=== PATIENT | male | born 1960 | race Caucasian/White ===

== ENCOUNTER 2022-01-03 03:35 | Inpatient (IN) ==
[2022-01-03 04:40] LABS: ABS Basophils 0.1 10^3/ul (0-0.2); ABS Eosinophils 0.1 10^3/ul (0-0.6); ABS Monocytes 0.8 10^3/ul (0-0.8); ABS Neutrophils 10.4 10^3/ul (1.5-7.7); Eosinophil % 0.9 %; Hematocrit 38 % (42-52); Hemoglobin 12.4 g/dL (14.0-18.0); Mean Corpuscular HGB Conc 32 g/dL (31-36); Mean Corpuscular Hemoglobin 30 pg (27-31); Mean Corpuscular Volume 93 fL (80-94); Mean Platelet Volume 9.5 fL (7.4-10.4); Platelet Count 171 10^3/uL (150-450); Red Blood Count 4.13 10^6 /uL (4.18-5.48); Red Cell Distribution Width 16 % (10-15); White Blood Count 12.4 10^3/uL (3.5-10.8)
[2022-01-03 05:08] LABS: High Sens Troponin Baseline 4 pg/mL (<20)
[2022-01-03 05:19] LABS: ALT 12 U/L (7-52); AST 12 U/L (13-39); Albumin/Globulin Ratio 1.3 (1-3); Alcohol, S < 13 mg/dL (<13); Alkaline Phosphatase 126 U/L (35-149); Anion Gap 8 mmol/L (2-11); Blood Urea Nitrogen 20 mg/dL (6-24); C Reactive Protein 5.96 mg/L (<8.01); CO2 Carbon Dioxide 29 mmol/L (22-32); Calcium 9.4 mg/dL (8.6-10.3); Chloride 101 mmol/L (101-111); Globulin 3.1 g/dL (2-4); Glucose 95 mg/dL (70-100); Magnesium 1.9 mg/dL (1.9-2.7); Potassium 4.6 mmol/L (3.5-5.0); Sodium 138 mmol/L (135-145); Total Protein 7.1 g/dL (6.4-8.9); eGFR CKD-EPI 44.3 (>60)
[2022-01-03 05:51] LABS: High Sensitivity Troponin 1 Hr < 3 pg/mL (<20)
[2022-01-03] MEDS ORDERED: Magnesium Hydroxide LIQ 30 ML UDC PO PRN (06:35)
[2022-01-03] MEDS ORDERED: Polyethylene Glycol 3350 17 GM PACKET PO PRN (06:35)
[2022-01-03] MEDS ORDERED: Senna TAB 8.6 mg TAB PO PRN (06:35)
[2022-01-03] MEDS: Morphine 2 MG/ML SYRINGE IV PRN ×3 (08:10→22:20)
[2022-01-03] MEDS ORDERED: Trospium 20 mg TAB (NF) PO SCH (09:00)
[2022-01-03] MEDS: Venlafaxine XR 75 mg PO SCH (10:11)
[2022-01-03] MEDS ORDERED: cefTRIAXone 1 gm/50 mL D5W 1 GM/50 ML BAG IV SCH (11:00)
[2022-01-03] MEDS: Fluticasone NASAL SPRAY 50MCG 16 gm SPRAY BTL BOTH NARES SCH (12:38)
[2022-01-03] MEDS: Acetaminophen IV 1 GM/100ML 100 ML IV SCH ×3 (12:40→18:05)
[2022-01-03] MEDS: Mometasone/Formoter 200/5 MDI INH SCH ×2 (13:27→19:58)
[2022-01-03] MEDS: cefTRIAXone 1 gm/50 mL D5W 1 GM/50 ML BAG IV SCH (15:20)
[2022-01-03] MEDS: TROSPIUM 20 MG PO SCH (22:20)
[2022-01-03 23:29] LABS: Urine Appearance Cloudy; Urine Bilirubin Negative (Negative); Urine Blood 3+ (Negative); Urine Color Straw; Urine Glucose Negative (Negative); Urine Ketones Negative (Negative); Urine Nitrite Negative (Negative); Urine Protein Negative (Negative); Urine Specific Gravity 1.008 (1.002-1.030); Urine Urobilinogen Negative (Negative)
[2022-01-03 23:35] LABS: Urine Bacteria Absent (Absent); Urine Red Blood Cell 3+(>10/hpf) (Absent); Urine White Blood Cell 3+(>20/hpf) (Absent)
[2022-01-03 23:46] LABS: Urine Benzodiazepine Screen None Detected (None Detect); Urine Cannabinoids Screen Presumptive Positive (None Detect); Urine Opiates Screen Presumptive Positive (None Detect)
[2022-01-04] MEDS: Morphine 2 MG/ML SYRINGE IV PRN ×2 (02:30→08:53)
[2022-01-04] MEDS: Albuterol HFA INHALER 8 gm MDI INH PRN ×3 (03:24→23:25)
[2022-01-04] MEDS: Acetaminophen IV 1 GM/100ML 100 ML IV SCH ×3 (03:29→18:16)
[2022-01-04 05:17] LABS: ABS Basophils 0.1 10^3/ul (0-0.2); ABS Eosinophils 0.2 10^3/ul (0-0.6); ABS Lymphocytes 0.7 10^3/ul (1.0-4.8); ABS Monocytes 0.9 10^3/ul (0-0.8); ABS Neutrophils 11.4 10^3/ul (1.5-7.7); Eosinophil % 1.3 %; Hematocrit 35 % (42-52); Hemoglobin 11.2 g/dL (14.0-18.0); Lymphocyte % 5.6 %; Mean Corpuscular HGB Conc 32 g/dL (31-36); Mean Corpuscular Hemoglobin 29 pg (27-31); Mean Corpuscular Volume 93 fL (80-94); Mean Platelet Volume 9.6 fL (7.4-10.4); Platelet Count 126 10^3/uL (150-450); Red Blood Count 3.82 10^6 /uL (4.18-5.48); Red Cell Distribution Width 17 % (10-15); White Blood Count 13.3 10^3/uL (3.5-10.8)
[2022-01-04 05:36] LABS: C Reactive Protein 87.23 mg/L (<8.01); Calcium 9.1 mg/dL (8.6-10.3); Magnesium 1.8 mg/dL (1.9-2.7); eGFR CKD-EPI 53.4 (>60)
[2022-01-04] MEDS: Mometasone/Formoter 200/5 MDI INH SCH ×3 (08:31→19:04)
[2022-01-04] MEDS: SPIRIVA Respimat (tiotropium) 2.5 mcg/inh Inhaler INH PRN (08:31)
[2022-01-04] MEDS ORDERED: Perflutren Lipid Microsphere 3 ML VIAL ONE (10:40)
[2022-01-04] MEDS: TROSPIUM 20 MG PO SCH ×2 (11:04→22:18)
[2022-01-04] MEDS: Venlafaxine XR 75 mg PO SCH (11:04)
[2022-01-04] MEDS ORDERED: Propofol 10 MG/ML 20 ML BTL ONE (12:46)
[2022-01-04] MEDS ORDERED: Rocuronium 50 mg VIAL 10 mg/ml 5 ml VIAL (50 mg) ONE (12:47)
[2022-01-04] MEDS ORDERED: Lidocaine 2% PF 10 ML AMP ONE (12:47)
[2022-01-04] MEDS ORDERED: fentaNYL 250 mcg/5 ml 50 MCG/ML 5 ml VIAL (250 MCG) ONE (12:49)
[2022-01-04] MEDS ORDERED: Midazolam 2 mg/2 ml VIAL 1 mg/ml 2 ml VIAL (2 mg) ONE (12:49)
[2022-01-04] MEDS ORDERED: Bupivacaine 0.25% SDV PF 10 ML VIAL INJ ONE (12:53)
[2022-01-04] MEDS ORDERED: Ketamine HCL 50 mg/ml 10 ml VIAL (500 MG) ONE (14:00)
[2022-01-04] MEDS ORDERED: Acetaminophen IV 1 GM/100ML 100 ML IV ONE (14:21)
[2022-01-04] MEDS ORDERED: Levalbuterol HFA INHALER MDI ONE (14:29)
[2022-01-04] MEDS ORDERED: Metoprolol Tartrate 5 mg VIAL 5 ml VIAL (1 mg/ml) ONE (14:37)
[2022-01-04] MEDS ORDERED: Ondansetron 4 mg VIAL 2 MG/ML 2 ml VIAL ONE (14:40)
[2022-01-04] MEDS ORDERED: Dexamethasone IV 4 MG/ML VIAL 1 ml VIAL ONE (14:40)
[2022-01-04] MEDS ORDERED: HYDROmorphone 0.5 MG/0.5 ML SYRINGE ONE (14:46)
[2022-01-04] MEDS ORDERED: HYDROmorphone 1 MG/1 ML SYRINGE IV PRN (15:08)
[2022-01-04] MEDS ORDERED: fentaNYL 100 mcg/2 ml 50 MCG/ML VIAL IV PRN (15:08)
[2022-01-04] MEDS ORDERED: Ondansetron 4 mg VIAL 2 MG/ML 2 ml VIAL IV PRN (15:08)
[2022-01-04] MEDS ORDERED: Naloxone 0.4 mg VIAL 0.4 mg/ml 1 ml VIAL IV PRN (15:08)
[2022-01-04] MEDS ORDERED: Morphine 2 MG/ML SYRINGE IV PRN (15:44)
[2022-01-04] MEDS ORDERED: Polyethylene Glycol 3350 17 GM PACKET PO PRN (15:45)
[2022-01-04] MEDS ORDERED: Magnesium Hydroxide LIQ 30 ML UDC PO PRN (15:45)
[2022-01-04] MEDS ORDERED: Senna TAB 8.6 mg TAB PO PRN (15:45)
[2022-01-04] MEDS: cefTRIAXone 1 gm/50 mL D5W 1 GM/50 ML BAG IV SCH (17:15)
[2022-01-04] MEDS: Fluticasone NASAL SPRAY 50MCG 16 gm SPRAY BTL BOTH NARES SCH (17:15)
[2022-01-04] MEDS: NS 0.9% 1000 ml BAG 1,000 ML IV SCH (17:31)
[2022-01-04 18:15] LABS: Hematocrit 36 % (42-52); Hemoglobin 11.4 g/dL (14.0-18.0)
[2022-01-04] MEDS ORDERED: Levalbuterol 1.25MG/0.5ML NEB.SOL INH ONE (18:34)
[2022-01-04] MEDS ORDERED: Furosemide 20 mg/2 ml IV VIAL IV SLOW PU ONE (19:54)
[2022-01-04] MEDS: Magnesium Hydroxide LIQ 30 ML UDC PO SCH (20:22)
[2022-01-04] MEDS: ceFAZolin 1 GM X 3 DOSES POST-OP Q8H (AddVan) IVPB SCH (22:18)
[2022-01-05] MEDS: Acetaminophen IV 1 GM/100ML 100 ML IV SCH ×3 (02:33→18:24)
[2022-01-05] MEDS: Albuterol HFA INHALER 8 gm MDI INH PRN ×2 (02:56→08:17)
[2022-01-05 06:37] LABS: Hematocrit 29 % (42-52); Hemoglobin 9.6 g/dL (14.0-18.0); Mean Platelet Volume 9.7 fL (7.4-10.4); Platelet Count 107 10^3/uL (150-450)
[2022-01-05] MEDS: NS 0.9% 1000 ml BAG 1,000 ML IV SCH (06:38)
[2022-01-05] MEDS: ceFAZolin 1 GM X 3 DOSES POST-OP Q8H (AddVan) IVPB SCH ×2 (06:38→14:16)
[2022-01-05] MEDS ORDERED: Furosemide 40 mg/4 ml IV VIAL IV SLOW PU ONE (08:18)
[2022-01-05] MEDS: Mometasone/Formoter 200/5 MDI INH SCH ×2 (08:19→20:44)
[2022-01-05] MEDS: SPIRIVA Respimat (tiotropium) 2.5 mcg/inh Inhaler INH PRN (08:22)
[2022-01-05] MEDS: Venlafaxine XR 75 mg PO SCH (08:35)
[2022-01-05] MEDS: Enoxaparin 40 MG/0.4 ML SYR SUBCUT SCH (08:35)
[2022-01-05] MEDS: Magnesium Hydroxide LIQ 30 ML UDC PO SCH ×2 (08:36→21:39)
[2022-01-05] MEDS: TROSPIUM 20 MG PO SCH ×2 (08:38→22:39)
[2022-01-05] MEDS: Fluticasone NASAL SPRAY 50MCG 16 gm SPRAY BTL BOTH NARES SCH (08:39)
[2022-01-05] MEDS: Levalbuterol HFA INHALER MDI INH PRN ×2 (11:37→23:43)
[2022-01-05] MEDS: cefTRIAXone 1 gm/50 mL D5W 1 GM/50 ML BAG IV SCH (16:59)
[2022-01-05 18:17] LABS: Calcium 8.4 mg/dL (8.6-10.3); Potassium 4.4 mmol/L (3.5-5.0); eGFR CKD-EPI 40.1 (>60)
[2022-01-06] MEDS: Acetaminophen IV 1 GM/100ML 100 ML IV SCH ×3 (02:33→18:39)
[2022-01-06] MEDS ORDERED: Albuterol 2.5mg/3 ml (0.083%) NEB.SOLN INH ONE (05:21)
[2022-01-06] MEDS ORDERED: Acetylcysteine INH SOL (RT) 200 MG/ML 4 ML VIAL INH PRN (05:26)
[2022-01-06] MEDS ORDERED: Furosemide 40 mg/4 ml IV VIAL IV ONE (05:58)
[2022-01-06] MEDS: Mometasone/Formoter 200/5 MDI INH SCH ×2 (07:29→19:53)
[2022-01-06 07:50] LABS: Hematocrit 27 % (42-52); Hemoglobin 8.9 g/dL (14.0-18.0)
[2022-01-06] MEDS: Magnesium Hydroxide LIQ 30 ML UDC PO SCH ×2 (10:05→22:16)
[2022-01-06] MEDS: Venlafaxine XR 75 mg PO SCH (10:07)
[2022-01-06] MEDS: TROSPIUM 20 MG PO SCH ×2 (10:09→22:17)
[2022-01-06] MEDS: Enoxaparin 40 MG/0.4 ML SYR SUBCUT SCH (10:15)
[2022-01-06] MEDS: Levalbuterol HFA INHALER MDI INH PRN ×2 (11:30→22:53)
[2022-01-06] MEDS: Fluticasone NASAL SPRAY 50MCG 16 gm SPRAY BTL BOTH NARES SCH (12:11)
[2022-01-06] MEDS: cefTRIAXone 1 gm/50 mL D5W 1 GM/50 ML BAG IV SCH (15:18)
[2022-01-07] MEDS: Acetaminophen IV 1 GM/100ML 100 ML IV SCH ×2 (01:08→09:59)
[2022-01-07 06:11] LABS: ABS Eosinophils 0.2 10^3/ul (0-0.6); ABS Lymphocytes 0.5 10^3/ul (1.0-4.8); ABS Monocytes 0.4 10^3/ul (0-0.8); ABS Neutrophils 4.5 10^3/ul (1.5-7.7); Eosinophil % 3.2 %; Hematocrit 24 % (42-52); Hemoglobin 7.8 g/dL (14.0-18.0); Lymphocyte % 8.3 %; Mean Corpuscular HGB Conc 33 g/dL (31-36); Mean Corpuscular Hemoglobin 30 pg (27-31); Mean Corpuscular Volume 92 fL (80-94); Mean Platelet Volume 10.3 fL (7.4-10.4); Platelet Count 113 10^3/uL (150-450); Red Blood Count 2.56 10^6 /uL (4.18-5.48); Red Cell Distribution Width 16 % (10-15); White Blood Count 5.6 10^3/uL (3.5-10.8)
[2022-01-07 06:32] LABS: ALT < 3 U/L (7-52); AST 8 U/L (13-39); Albumin 2.7 g/dL (3.2-5.2); Albumin/Globulin Ratio 1.1 (1-3); Alkaline Phosphatase 81 U/L (35-149); Anion Gap 11 mmol/L (2-11); Blood Urea Nitrogen 33 mg/dL (6-24); CO2 Carbon Dioxide 25 mmol/L (22-32); Calcium 8.6 mg/dL (8.6-10.3); Chloride 101 mmol/L (101-111); Globulin 2.4 g/dL (2-4); Glucose 94 mg/dL (70-100); Magnesium 2.3 mg/dL (1.9-2.7); Potassium 4.1 mmol/L (3.5-5.0); Sodium 137 mmol/L (135-145); Total Protein 5.1 g/dL (6.4-8.9); eGFR CKD-EPI 47.9 (>60)
[2022-01-07] MEDS: Levalbuterol HFA INHALER MDI INH PRN (06:56)
[2022-01-07] MEDS: Mometasone/Formoter 200/5 MDI INH SCH ×2 (06:57→19:57)
[2022-01-07] MEDS: TROSPIUM 20 MG PO SCH ×2 (10:03→20:52)
[2022-01-07] MEDS: Enoxaparin 40 MG/0.4 ML SYR SUBCUT SCH (10:04)
[2022-01-07] MEDS: Magnesium Hydroxide LIQ 30 ML UDC PO SCH ×3 (10:04→21:02)
[2022-01-07] MEDS: Fluticasone NASAL SPRAY 50MCG 16 gm SPRAY BTL BOTH NARES SCH (10:04)
[2022-01-07] MEDS: Venlafaxine XR 75 mg PO SCH (10:04)
[2022-01-07] MEDS: cefTRIAXone 1 gm/50 mL D5W 1 GM/50 ML BAG IV SCH (15:47)
[2022-01-08 10:04] LABS: ABS Eosinophils 0.1 10^3/ul (0-0.6); ABS Lymphocytes 0.3 10^3/ul (1.0-4.8); ABS Monocytes 0.5 10^3/ul (0-0.8); ABS Neutrophils 4.2 10^3/ul (1.5-7.7); Eosinophil % 2.6 %; Hematocrit 25 % (42-52); Hemoglobin 8.2 g/dL (14.0-18.0); Lymphocyte % 5.2 %; Mean Corpuscular HGB Conc 34 g/dL (31-36); Mean Corpuscular Hemoglobin 30 pg (27-31); Mean Corpuscular Volume 91 fL (80-94); Mean Platelet Volume 9.2 fL (7.4-10.4); Nucleated Red Blood Cells % 0.2; Platelet Count 151 10^3/uL (150-450); Red Cell Distribution Width 16 % (10-15); White Blood Count 5.1 10^3/uL (3.5-10.8)
[2022-01-08] MEDS: Mometasone/Formoter 200/5 MDI INH SCH ×2 (10:04→19:47)
[2022-01-08] MEDS: Magnesium Hydroxide LIQ 30 ML UDC PO SCH ×2 (10:19→22:21)
[2022-01-08] MEDS: Venlafaxine XR 75 mg PO SCH (10:19)
[2022-01-08] MEDS: TROSPIUM 20 MG PO SCH ×2 (10:21→22:22)
[2022-01-08] MEDS: Enoxaparin 40 MG/0.4 ML SYR SUBCUT SCH (10:41)
[2022-01-08 11:20] LABS: Calcium 8.6 mg/dL (8.6-10.3); Potassium 4.1 mmol/L (3.5-5.0); eGFR CKD-EPI 55.2 (>60)
[2022-01-08] MEDS: Fluticasone NASAL SPRAY 50MCG 16 gm SPRAY BTL BOTH NARES SCH (11:32)
[2022-01-08 17:32] LABS: Urine Appearance Clear; Urine Bilirubin Negative (Negative); Urine Blood 2+ (Negative); Urine Color Yellow; Urine Glucose Negative (Negative); Urine Ketones Trace (Negative); Urine Nitrite Negative (Negative); Urine Protein Negative (Negative); Urine Specific Gravity 1.011 (1.002-1.030); Urine Urobilinogen Negative (Negative)
[2022-01-08 17:35] LABS: Urine Bacteria Absent (Absent); Urine Red Blood Cell 2+(6-10/hpf) (Absent); Urine White Blood Cell Trace(0-5/hpf) (Absent)
[2022-01-08] MEDS: Levalbuterol HFA INHALER MDI INH PRN (21:39)
[2022-01-08] MEDS: SPIRIVA Respimat (tiotropium) 2.5 mcg/inh Inhaler INH PRN (22:39)
[2022-01-09] MEDS: Mometasone/Formoter 200/5 MDI INH SCH ×3 (08:41→21:24)
[2022-01-09] MEDS: Venlafaxine XR 75 mg PO SCH (10:10)
[2022-01-09] MEDS: Enoxaparin 40 MG/0.4 ML SYR SUBCUT SCH (10:10)
[2022-01-09] MEDS: Magnesium Hydroxide LIQ 30 ML UDC PO SCH ×2 (10:11→21:54)
[2022-01-09] MEDS: Fluticasone NASAL SPRAY 50MCG 16 gm SPRAY BTL BOTH NARES SCH (10:11)
[2022-01-09] MEDS: TROSPIUM 20 MG PO SCH ×2 (10:12→21:53)
[2022-01-09] MEDS: Albuterol 2.5mg/3 ml (0.083%) NEB.SOLN INH SCH ×3 (13:03→21:24)
[2022-01-10] MEDS: Albuterol 2.5mg/3 ml (0.083%) NEB.SOLN INH SCH ×5 (01:46→19:50)
[2022-01-10 06:25] LABS: Hematocrit 22 % (42-52); Hemoglobin 7.2 g/dL (14.0-18.0); Mean Corpuscular HGB Conc 33 g/dL (31-36); Mean Corpuscular Hemoglobin 30 pg (27-31); Mean Corpuscular Volume 91 fL (80-94); Mean Platelet Volume 8.9 fL (7.4-10.4); Platelet Count 193 10^3/uL (150-450); Red Blood Count 2.39 10^6 /uL (4.18-5.48); Red Cell Distribution Width 15 % (10-15)
[2022-01-10 06:48] LABS: ABS Eosinophils 0.1 10^3/ul (0-0.6); ABS Lymphocytes 0.4 10^3/ul (1.0-4.8); ABS Monocytes 0.6 10^3/ul (0-0.8); ABS Neutrophils 4.8 10^3/ul (1.5-7.7); Lymphocyte % 7.4 %; Nucleated Red Blood Cells % 0.3
[2022-01-10] MEDS: Mometasone/Formoter 200/5 MDI INH SCH ×2 (07:16→19:50)
[2022-01-10 08:11] LABS: Calcium 8.3 mg/dL (8.6-10.3); Potassium 4.4 mmol/L (3.5-5.0)
[2022-01-10 08:18] LABS: eGFR CKD-EPI 35.8 (>60)
[2022-01-10] MEDS: Venlafaxine XR 75 mg PO SCH (09:50)
[2022-01-10] MEDS: TROSPIUM 20 MG PO SCH ×2 (09:51→20:37)
[2022-01-10] MEDS: Magnesium Hydroxide LIQ 30 ML UDC PO SCH ×2 (09:53→20:36)
[2022-01-10] MEDS: Enoxaparin 40 MG/0.4 ML SYR SUBCUT SCH (09:56)
[2022-01-10] MEDS: Fluticasone NASAL SPRAY 50MCG 16 gm SPRAY BTL BOTH NARES SCH (09:58)
[2022-01-10 14:01] LABS: PCO2 Arterial 36 mmHg (35-45); PO2 Arterial 77 mmHg (80-100)
[2022-01-10 14:53] LABS: Hematocrit 22 % (42-52); Hemoglobin 7.2 g/dL (14.0-18.0)
[2022-01-11] MEDS: Albuterol 2.5mg/3 ml (0.083%) NEB.SOLN INH SCH ×2 (02:23→07:37)
[2022-01-11] MEDS: Mometasone/Formoter 200/5 MDI INH SCH ×2 (07:38→20:38)
[2022-01-11] MEDS: Fluticasone NASAL SPRAY 50MCG 16 gm SPRAY BTL BOTH NARES SCH (09:14)
[2022-01-11] MEDS: Enoxaparin 40 MG/0.4 ML SYR SUBCUT SCH (09:14)
[2022-01-11] MEDS: Magnesium Hydroxide LIQ 30 ML UDC PO SCH ×2 (09:14→22:23)
[2022-01-11] MEDS: TROSPIUM 20 MG PO SCH ×2 (09:15→22:23)
[2022-01-11] MEDS: Venlafaxine XR 75 mg PO SCH (09:15)
[2022-01-11] MEDS ORDERED: Albuterol 2.5mg/3 ml (0.083%) NEB.SOLN INH PRN (11:07)
[2022-01-11] MEDS ORDERED: OLANZAPINE 10 MG IM ONE (13:01)
[2022-01-11 15:59] LABS: Hematocrit 22 % (42-52); Hemoglobin 7.1 g/dL (14.0-18.0); Mean Corpuscular HGB Conc 32 g/dL (31-36); Mean Corpuscular Hemoglobin 29 pg (27-31); Mean Corpuscular Volume 90 fL (80-94); Mean Platelet Volume 8.8 fL (7.4-10.4); Platelet Count 240 10^3/uL (150-450); Red Blood Count 2.46 10^6 /uL (4.18-5.48); Red Cell Distribution Width 16 % (10-15); White Blood Count 7.4 10^3/uL (3.5-10.8)
[2022-01-11 16:47] LABS: Albumin 2.4 g/dL (3.2-5.2); Albumin/Globulin Ratio 0.9 (1-3); Calcium 8.2 mg/dL (8.6-10.3); Globulin 2.6 g/dL (2-4); Phosphorus 4.4 mg/dL (2.5-5.0); Potassium 4.4 mmol/L (3.5-5.0); Total Bilirubin 0.3 mg/dL (0.2-1.0); eGFR CKD-EPI 44.9 (>60)
[2022-01-11 16:57] LABS: ABS Eosinophils 0.1 10^3/ul (0-0.6); ABS Lymphocytes 0.5 10^3/ul (1.0-4.8); ABS Monocytes 0.7 10^3/ul (0-0.8); Eosinophil % 1.8 %; Lymphocyte % 6.7 %; Nucleated Red Blood Cells % 0.3
[2022-01-11] MEDS ORDERED: Piperacillin/Tazobac ADVAN 3.375 GM in NS 0.9% 100 ml BAG 100 ML IV ONE (18:15)
[2022-01-11] MEDS ORDERED: Zosyn per Pharmacy NOTE FOLLOW UP SCH (19:00)
[2022-01-12] MEDS: ZOSYN 3.375 GM Q8H per EXTENDED INFUSION IV SCH ×4 (00:03→23:48)
[2022-01-12 06:01] LABS: Hematocrit 23 % (42-52); Hemoglobin 7.4 g/dL (14.0-18.0); Mean Corpuscular HGB Conc 33 g/dL (31-36); Mean Corpuscular Hemoglobin 29 pg (27-31); Mean Corpuscular Volume 90 fL (80-94); Mean Platelet Volume 8.6 fL (7.4-10.4); Platelet Count 274 10^3/uL (150-450); Red Blood Count 2.53 10^6 /uL (4.18-5.48); Red Cell Distribution Width 16 % (10-15); White Blood Count 10.7 10^3/uL (3.5-10.8)
[2022-01-12 06:09] LABS: ABS Eosinophils 0.2 10^3/ul (0-0.6); ABS Lymphocytes 0.8 10^3/ul (1.0-4.8); ABS Monocytes 1.1 10^3/ul (0-0.8); ABS Neutrophils 8.6 10^3/ul (1.5-7.7); Eosinophil % 1.7 %; Lymphocyte % 7.1 %; Nucleated Red Blood Cells % 0.2
[2022-01-12 06:22] LABS: C Reactive Protein 330.07 mg/L (<8.01); Calcium 8.2 mg/dL (8.6-10.3); Phosphorus 4.2 mg/dL (2.5-5.0); Potassium 4.3 mmol/L (3.5-5.0); eGFR CKD-EPI 40.1 (>60)
[2022-01-12] MEDS: TROSPIUM 20 MG PO SCH ×2 (07:46→21:58)
[2022-01-12] MEDS: Venlafaxine XR 75 mg PO SCH (07:47)
[2022-01-12] MEDS: Enoxaparin 40 MG/0.4 ML SYR SUBCUT SCH (07:48)
[2022-01-12] MEDS: Magnesium Hydroxide LIQ 30 ML UDC PO SCH ×3 (07:49→21:58)
[2022-01-12] MEDS: Mometasone/Formoter 200/5 MDI INH SCH ×2 (08:39→21:04)
[2022-01-12] MEDS: Fluticasone NASAL SPRAY 50MCG 16 gm SPRAY BTL BOTH NARES SCH (09:05)
[2022-01-12] MEDS ORDERED: OLANZapine IM (NF) 10 MG VIAL IM ONE (09:25)
[2022-01-12] MEDS ORDERED: Furosemide 40 mg/4 ml IV VIAL IV SLOW PU ONE (12:06)
[2022-01-12] MEDS: OLANZapine 5 mg TAB *ODT PO SCH (22:03)
[2022-01-13] MEDS: ZOSYN 3.375 GM Q8H per EXTENDED INFUSION IV SCH ×2 (07:57→16:30)
[2022-01-13] MEDS: Fluticasone NASAL SPRAY 50MCG 16 gm SPRAY BTL BOTH NARES SCH (08:01)
[2022-01-13] MEDS: Venlafaxine XR 75 mg PO SCH (08:02)
[2022-01-13] MEDS: OLANZapine 5 mg TAB *ODT PO SCH ×2 (08:06→20:26)
[2022-01-13] MEDS: Magnesium Hydroxide LIQ 30 ML UDC PO SCH ×2 (08:08→20:13)
[2022-01-13] MEDS: Enoxaparin 40 MG/0.4 ML SYR SUBCUT SCH (08:11)
[2022-01-13] MEDS: TROSPIUM 20 MG PO SCH ×2 (08:16→20:26)
[2022-01-13] MEDS: Mometasone/Formoter 200/5 MDI INH SCH ×2 (09:55→19:16)
[2022-01-13 11:13] LABS: Hematocrit 23 % (42-52); Hemoglobin 7.3 g/dL (14.0-18.0); Mean Corpuscular HGB Conc 32 g/dL (31-36); Mean Corpuscular Hemoglobin 29 pg (27-31); Mean Corpuscular Volume 90 fL (80-94); Mean Platelet Volume 8.2 fL (7.4-10.4); Platelet Count 292 10^3/uL (150-450); Red Blood Count 2.55 10^6 /uL (4.18-5.48); Red Cell Distribution Width 16 % (10-15)
[2022-01-13 11:51] LABS: Calcium 7.9 mg/dL (8.6-10.3); Magnesium 2.6 mg/dL (1.9-2.7); Potassium 4.4 mmol/L (3.5-5.0); eGFR CKD-EPI 38.7 (>60)
[2022-01-13 12:13] LABS: ABS Eosinophils 0.2 10^3/ul (0-0.6); ABS Monocytes 1.6 10^3/ul (0-0.8); ABS Neutrophils 10.2 10^3/ul (1.5-7.7); Eosinophil % 1.5 %; Lymphocyte % 7.7 %; Nucleated Red Blood Cells % 0.3
[2022-01-13 12:16] LABS: Anisocytosis 1+
[2022-01-13] MEDS: Levalbuterol HFA INHALER MDI INH PRN (13:25)
[2022-01-14] MEDS: ZOSYN 3.375 GM Q8H per EXTENDED INFUSION IV SCH ×4 (02:08→23:37)
[2022-01-14 06:12] LABS: Hematocrit 24 % (42-52); Hemoglobin 7.7 g/dL (14.0-18.0); Mean Corpuscular HGB Conc 32 g/dL (31-36); Mean Corpuscular Hemoglobin 30 pg (27-31); Mean Corpuscular Volume 93 fL (80-94); Mean Platelet Volume 8.2 fL (7.4-10.4); Platelet Count 318 10^3/uL (150-450); Red Cell Distribution Width 17 % (10-15); White Blood Count 13.4 10^3/uL (3.5-10.8)
[2022-01-14 06:36] LABS: Calcium 8.2 mg/dL (8.6-10.3); Magnesium 2.5 mg/dL (1.9-2.7); Potassium 4.8 mmol/L (3.5-5.0); eGFR CKD-EPI 40.7 (>60)
[2022-01-14] MEDS: SPIRIVA Respimat (tiotropium) 2.5 mcg/inh Inhaler INH PRN (07:48)
[2022-01-14] MEDS: Mometasone/Formoter 200/5 MDI INH SCH ×3 (07:48→20:44)
[2022-01-14] MEDS: Levalbuterol HFA INHALER MDI INH PRN (07:48)
[2022-01-14 08:34] LABS: ABS Basophils 0.1 10^3/ul (0-0.2); ABS Eosinophils 0.2 10^3/ul (0-0.6); ABS Lymphocytes 0.9 10^3/ul (1.0-4.8); ABS Monocytes 1.3 10^3/ul (0-0.8); ABS Neutrophils 10.9 10^3/ul (1.5-7.7); Eosinophil % 1.8 %; Nucleated Red Blood Cells % 0.2; RBC Morphology Normal (Normal)
[2022-01-14] MEDS: guaiFENesin 100 mg/5 ml LIQ unit dose cup PO SCH ×2 (09:13→20:27)
[2022-01-14] MEDS: Fluticasone NASAL SPRAY 50MCG 16 gm SPRAY BTL BOTH NARES SCH (09:13)
[2022-01-14] MEDS: Enoxaparin 40 MG/0.4 ML SYR SUBCUT SCH (09:13)
[2022-01-14] MEDS: Magnesium Hydroxide LIQ 30 ML UDC PO SCH ×2 (09:15→20:27)
[2022-01-14] MEDS: TROSPIUM 20 MG PO SCH ×2 (09:15→20:28)
[2022-01-14] MEDS: OLANZapine 5 mg TAB *ODT PO SCH ×2 (09:15→20:27)
[2022-01-14] MEDS: Venlafaxine XR 75 mg PO SCH (09:15)
[2022-01-14] MEDS ORDERED: NS 0.9% 500 ml BAG 500 ML IV ONE (23:48)
[2022-01-15] MEDS: Levalbuterol HFA INHALER MDI INH PRN ×2 (03:18→13:51)
[2022-01-15 05:09] LABS: Hematocrit 25 % (42-52); Hemoglobin 7.6 g/dL (14.0-18.0); Mean Corpuscular HGB Conc 31 g/dL (31-36); Mean Corpuscular Hemoglobin 28 pg (27-31); Mean Corpuscular Volume 91 fL (80-94); Mean Platelet Volume 8.2 fL (7.4-10.4); Platelet Count 358 10^3/uL (150-450); Red Blood Count 2.73 10^6 /uL (4.18-5.48); Red Cell Distribution Width 17 % (10-15); White Blood Count 13.8 10^3/uL (3.5-10.8)
[2022-01-15 05:23] LABS: ABS Basophils 0.1 10^3/ul (0-0.2); ABS Eosinophils 0.4 10^3/ul (0-0.6); ABS Lymphocytes 1.1 10^3/ul (1.0-4.8); ABS Monocytes 1.5 10^3/ul (0-0.8); ABS Neutrophils 10.8 10^3/ul (1.5-7.7); Eosinophil % 2.7 %; Nucleated Red Blood Cells % 0.2
[2022-01-15 05:52] LABS: Calcium 8.1 mg/dL (8.6-10.3); Magnesium 2.4 mg/dL (1.9-2.7); Potassium 4.5 mmol/L (3.5-5.0); eGFR CKD-EPI 40.1 (>60)
[2022-01-15] MEDS: TROSPIUM 20 MG PO SCH (08:22)
[2022-01-15] MEDS: guaiFENesin 100 mg/5 ml LIQ unit dose cup PO SCH ×2 (08:22→20:22)
[2022-01-15] MEDS: Enoxaparin 40 MG/0.4 ML SYR SUBCUT SCH (08:22)
[2022-01-15] MEDS: ZOSYN 3.375 GM Q8H per EXTENDED INFUSION IV SCH ×3 (08:24→23:36)
[2022-01-15] MEDS: Venlafaxine XR 75 mg PO SCH (08:24)
[2022-01-15] MEDS: OLANZapine 5 mg TAB *ODT PO SCH ×2 (08:24→23:40)
[2022-01-15] MEDS: Fluticasone NASAL SPRAY 50MCG 16 gm SPRAY BTL BOTH NARES SCH (08:43)
[2022-01-15] MEDS: Magnesium Hydroxide LIQ 30 ML UDC PO SCH ×2 (08:43→23:34)
[2022-01-15] MEDS: Mometasone/Formoter 200/5 MDI INH SCH ×2 (12:35→19:39)
[2022-01-15] MEDS: SPIRIVA Respimat (tiotropium) 2.5 mcg/inh Inhaler INH SCH (12:36)
[2022-01-15 13:30] LABS: C Reactive Protein 145.62 mg/L (<8.01)
[2022-01-15] MEDS ORDERED: Simethicone SUSP ORALSYR 66.66 MG/ML PO ONE (14:00)
[2022-01-15] MEDS ORDERED: Morphine 2 MG/ML SYRINGE IV PRN (14:13)
[2022-01-15] MEDS: Albuterol 2.5mg/3 ml (0.083%) NEB.SOLN INH PRN (18:46)
[2022-01-16] MEDS: Levalbuterol HFA INHALER MDI INH PRN ×2 (04:30→14:31)
[2022-01-16 06:41] LABS: Hematocrit 23 % (42-52); Hemoglobin 7.4 g/dL (14.0-18.0); Mean Corpuscular HGB Conc 32 g/dL (31-36); Mean Corpuscular Hemoglobin 29 pg (27-31); Mean Corpuscular Volume 92 fL (80-94); Platelet Count 408 10^3/uL (150-450); Red Blood Count 2.53 10^6 /uL (4.18-5.48); Red Cell Distribution Width 16 % (10-15); White Blood Count 16.7 10^3/uL (3.5-10.8)
[2022-01-16] MEDS: SPIRIVA Respimat (tiotropium) 2.5 mcg/inh Inhaler INH SCH ×2 (08:08→09:05)
[2022-01-16] MEDS: Mometasone/Formoter 200/5 MDI INH SCH ×3 (08:08→19:47)
[2022-01-16] MEDS: guaiFENesin 100 mg/5 ml LIQ unit dose cup PO SCH ×2 (09:00→20:15)
[2022-01-16] MEDS: Venlafaxine XR 75 mg PO SCH (09:01)
[2022-01-16] MEDS: Fluticasone NASAL SPRAY 50MCG 16 gm SPRAY BTL BOTH NARES SCH (09:04)
[2022-01-16] MEDS: ZOSYN 3.375 GM Q8H per EXTENDED INFUSION IV SCH ×2 (09:11→16:12)
[2022-01-16] MEDS: Enoxaparin 40 MG/0.4 ML SYR SUBCUT SCH (09:23)
[2022-01-16] MEDS: OLANZapine 5 mg TAB *ODT PO SCH ×2 (09:24→20:25)
[2022-01-16] MEDS ORDERED: Dextran 70/Hypromellose Tears Eye Drops 15 ml BTL (for Artificials Tears) BOTH EYES PRN (23:36)
[2022-01-17] MEDS ORDERED: NS 0.9% 100 ml BAG 100 ML ONE (00:21)
[2022-01-17] MEDS: ZOSYN 3.375 GM Q8H per EXTENDED INFUSION IV SCH ×4 (00:23→23:32)
[2022-01-17] MEDS: Levalbuterol HFA INHALER MDI INH PRN ×2 (03:32→08:03)
[2022-01-17 05:56] LABS: Hematocrit 23 % (42-52); Hemoglobin 7.2 g/dL (14.0-18.0); Mean Corpuscular HGB Conc 31 g/dL (31-36); Mean Corpuscular Hemoglobin 28 pg (27-31); Mean Corpuscular Volume 92 fL (80-94); Mean Platelet Volume 8.1 fL (7.4-10.4); Platelet Count 478 10^3/uL (150-450); Red Blood Count 2.53 10^6 /uL (4.18-5.48); Red Cell Distribution Width 17 % (10-15); White Blood Count 21.6 10^3/uL (3.5-10.8)
[2022-01-17 06:17] LABS: Calcium 8.2 mg/dL (8.6-10.3); Potassium 4.2 mmol/L (3.5-5.0); eGFR CKD-EPI 37.7 (>60)
[2022-01-17 07:00] LABS: ABS Lymphocytes 1.4 10^3/ul (1.0-4.8); ABS Monocytes 1.3 10^3/ul (0-0.8); ABS Neutrophils 18.8 10^3/ul (1.5-7.7); Eosinophil % 0.2 %; Lymphocyte % 6.5 %; Nucleated Red Blood Cells % 0.2
[2022-01-17 07:07] LABS: RBC Morphology Normal (Normal)
[2022-01-17] MEDS: Mometasone/Formoter 200/5 MDI INH SCH ×2 (08:04→20:37)
[2022-01-17] MEDS: SPIRIVA Respimat (tiotropium) 2.5 mcg/inh Inhaler INH SCH (08:04)
[2022-01-17] MEDS: guaiFENesin 100 mg/5 ml LIQ unit dose cup PO SCH ×2 (08:36→20:31)
[2022-01-17] MEDS: Enoxaparin 40 MG/0.4 ML SYR SUBCUT SCH (08:37)
[2022-01-17] MEDS: Venlafaxine XR 75 mg PO SCH (08:38)
[2022-01-17] MEDS: Fluticasone NASAL SPRAY 50MCG 16 gm SPRAY BTL BOTH NARES SCH (08:52)
[2022-01-17] MEDS: OLANZapine 5 mg TAB *ODT PO SCH ×2 (08:52→20:27)
[2022-01-18] MEDS: Levalbuterol HFA INHALER MDI INH PRN ×3 (02:10→19:39)
[2022-01-18] MEDS: Mometasone/Formoter 200/5 MDI INH SCH ×2 (07:04→19:39)
[2022-01-18] MEDS: SPIRIVA Respimat (tiotropium) 2.5 mcg/inh Inhaler INH SCH (07:04)
[2022-01-18] MEDS: ZOSYN 3.375 GM Q8H per EXTENDED INFUSION IV SCH ×2 (08:36→15:05)
[2022-01-18] MEDS: Venlafaxine XR 75 mg PO SCH (09:18)
[2022-01-18] MEDS: guaiFENesin 100 mg/5 ml LIQ unit dose cup PO SCH ×2 (09:20→20:12)
[2022-01-18] MEDS: Fluticasone NASAL SPRAY 50MCG 16 gm SPRAY BTL BOTH NARES SCH (09:21)
[2022-01-18] MEDS: Enoxaparin 40 MG/0.4 ML SYR SUBCUT SCH (09:21)
[2022-01-18] MEDS: OLANZapine 5 mg TAB *ODT PO SCH ×2 (09:22→20:11)
[2022-01-18 10:25] LABS: Hematocrit 25 % (42-52); Hemoglobin 7.8 g/dL (14.0-18.0); Mean Corpuscular HGB Conc 31 g/dL (31-36); Mean Corpuscular Hemoglobin 29 pg (27-31); Mean Corpuscular Volume 94 fL (80-94); Mean Platelet Volume 7.8 fL (7.4-10.4); Platelet Count 493 10^3/uL (150-450); Red Blood Count 2.66 10^6 /uL (4.18-5.48); Red Cell Distribution Width 17 % (10-15); White Blood Count 19.7 10^3/uL (3.5-10.8)
[2022-01-18 10:29] LABS: Potassium 3.5 mmol/L (3.5-5.0); eGFR CKD-EPI 36.6 (>60)
[2022-01-18 11:17] LABS: ABS Eosinophils 0.1 10^3/ul (0-0.6); ABS Lymphocytes 1.7 10^3/ul (1.0-4.8); ABS Monocytes 1.2 10^3/ul (0-0.8); ABS Neutrophils 16.6 10^3/ul (1.5-7.7); Eosinophil % 0.5 %; Lymphocyte % 8.8 %; Nucleated Red Blood Cells % 0.1
[2022-01-18] MEDS ORDERED: Lidocaine 4% GEL 10 GM TUBE TOPICAL ONE (21:39)
[2022-01-18] MEDS ORDERED: Ondansetron 4 mg VIAL 2 MG/ML 2 ml VIAL IV PRN (21:40)
[2022-01-19] MEDS: Levalbuterol HFA INHALER MDI INH PRN ×2 (01:37→20:32)
[2022-01-19] MEDS: ZOSYN 3.375 GM Q8H per EXTENDED INFUSION IV SCH ×3 (01:37→15:31)
[2022-01-19] MEDS: SPIRIVA Respimat (tiotropium) 2.5 mcg/inh Inhaler INH SCH (08:05)
[2022-01-19] MEDS: Mometasone/Formoter 200/5 MDI INH SCH ×2 (08:41→20:47)
[2022-01-19] MEDS: Fluticasone NASAL SPRAY 50MCG 16 gm SPRAY BTL BOTH NARES SCH (09:29)
[2022-01-19] MEDS: guaiFENesin 100 mg/5 ml LIQ unit dose cup PO SCH ×2 (09:29→20:26)
[2022-01-19] MEDS: Enoxaparin 40 MG/0.4 ML SYR SUBCUT SCH (09:29)
[2022-01-19] MEDS: Venlafaxine XR 75 mg PO SCH (09:30)
[2022-01-19] MEDS: OLANZapine 5 mg TAB *ODT PO SCH (09:31)
[2022-01-20] MEDS: ZOSYN 3.375 GM Q8H per EXTENDED INFUSION IV SCH ×2 (01:14→08:43)
[2022-01-20] MEDS: guaiFENesin 100 mg/5 ml LIQ unit dose cup PO SCH ×2 (08:39→20:21)
[2022-01-20] MEDS: Fluticasone NASAL SPRAY 50MCG 16 gm SPRAY BTL BOTH NARES SCH (08:40)
[2022-01-20] MEDS: Venlafaxine XR 75 mg PO SCH (08:41)
[2022-01-20] MEDS: Enoxaparin 40 MG/0.4 ML SYR SUBCUT SCH (08:43)
[2022-01-20] MEDS: SPIRIVA Respimat (tiotropium) 2.5 mcg/inh Inhaler INH SCH (12:08)
[2022-01-20] MEDS: Mometasone/Formoter 200/5 MDI INH SCH ×2 (12:09→20:39)
[2022-01-20] MEDS: Amoxicillin/Clavul 875/125 TAB (Augmentin 875 tab) PO SCH (20:22)
[2022-01-21] MEDS: Levalbuterol HFA INHALER MDI INH PRN ×2 (00:39→08:42)
[2022-01-21] MEDS: SPIRIVA Respimat (tiotropium) 2.5 mcg/inh Inhaler INH SCH (08:40)
[2022-01-21] MEDS: Mometasone/Formoter 200/5 MDI INH SCH ×2 (08:41→20:27)
[2022-01-21] MEDS: guaiFENesin 100 mg/5 ml LIQ unit dose cup PO SCH ×2 (09:16→21:09)
[2022-01-21] MEDS: Enoxaparin 40 MG/0.4 ML SYR SUBCUT SCH (09:16)
[2022-01-21] MEDS: Venlafaxine XR 75 mg PO SCH (09:17)
[2022-01-21] MEDS: Amoxicillin/Clavul 875/125 TAB (Augmentin 875 tab) PO SCH ×2 (09:20→21:09)
[2022-01-21] MEDS: Fluticasone NASAL SPRAY 50MCG 16 gm SPRAY BTL BOTH NARES SCH (09:22)
[2022-01-21] MEDS: Albuterol 2.5mg/3 ml (0.083%) NEB.SOLN INH PRN (22:28)
[2022-01-22] MEDS: Levalbuterol HFA INHALER MDI INH PRN ×2 (05:46→08:56)
[2022-01-22 05:50] LABS: Hematocrit 22 % (42-52); Hemoglobin 6.8 g/dL (14.0-18.0); Mean Corpuscular HGB Conc 31 g/dL (31-36); Mean Corpuscular Hemoglobin 29 pg (27-31); Mean Corpuscular Volume 92 fL (80-94); Mean Platelet Volume 7.9 fL (7.4-10.4); Platelet Count 531 10^3/uL (150-450); Red Blood Count 2.39 10^6 /uL (4.18-5.48); Red Cell Distribution Width 17 % (10-15); White Blood Count 11.2 10^3/uL (3.5-10.8)
[2022-01-22 06:15] LABS: Anion Gap 8 mmol/L (2-11); Blood Urea Nitrogen 29 mg/dL (6-24); CO2 Carbon Dioxide 24 mmol/L (22-32); Calcium 8.3 mg/dL (8.6-10.3); Chloride 111 mmol/L (101-111); Glucose 117 mg/dL (70-100); Magnesium 1.4 mg/dL (1.9-2.7); Potassium 4.8 mmol/L (3.5-5.0); Sodium 143 mmol/L (135-145); eGFR CKD-EPI 49.8 (>60)
[2022-01-22 07:18] LABS: ABS Eosinophils 0.1 10^3/ul (0-0.6); ABS Lymphocytes 1.6 10^3/ul (1.0-4.8); ABS Monocytes 0.9 10^3/ul (0-0.8); ABS Neutrophils 8.6 10^3/ul (1.5-7.7); Eosinophil % 0.7 %; Lymphocyte % 14.2 %; Nucleated Red Blood Cells % 0.1
[2022-01-22] MEDS: SPIRIVA Respimat (tiotropium) 2.5 mcg/inh Inhaler INH SCH (08:56)
[2022-01-22] MEDS: Mometasone/Formoter 200/5 MDI INH SCH ×2 (08:57→20:16)
[2022-01-22 09:07] LABS: Corrected Retic Count 2.6 % (0.5-1.5); Hematocrit for Retic CNT 22 % (42-52); Immature Retic Fraction 0.61; RBC Retic Count 2.39 10^6/uL (4.18-5.48)
[2022-01-22 09:20] LABS: % Iron Saturation 8 % (15-55); Iron 21 ug/dL (50-212); Total Iron Binding Capacity 277 mcg/dL (250-450); Transferrin 198 mg/dL (203-362); Unsaturated Iron Binding 256 ug/dL
[2022-01-22 09:46] LABS: Folate 4.31 ng/mL (5.90-24.80)
[2022-01-22 09:47] LABS: Vitamin B12 > 1450 pg/mL (180-914)
[2022-01-22] MEDS: Magnesium Sulfate 2 gm BAG 2 GM/50 ML BAG IVPB SCH ×2 (10:06→15:50)
[2022-01-22] MEDS: guaiFENesin 100 mg/5 ml LIQ unit dose cup PO SCH ×2 (10:10→22:11)
[2022-01-22] MEDS: Venlafaxine XR 75 mg PO SCH (10:19)
[2022-01-22] MEDS: Enoxaparin 40 MG/0.4 ML SYR SUBCUT SCH (10:22)
[2022-01-22] MEDS: Fluticasone NASAL SPRAY 50MCG 16 gm SPRAY BTL BOTH NARES SCH (10:23)
[2022-01-22] MEDS: Albuterol 2.5mg/3 ml (0.083%) NEB.SOLN INH PRN (16:55)
[2022-01-23 05:32] LABS: Hematocrit 26 % (42-52); Hemoglobin 8.4 g/dL (14.0-18.0); Mean Corpuscular HGB Conc 32 g/dL (31-36); Mean Corpuscular Hemoglobin 29 pg (27-31); Mean Corpuscular Volume 89 fL (80-94); Mean Platelet Volume 7.7 fL (7.4-10.4); Platelet Count 496 10^3/uL (150-450); Red Blood Count 2.91 10^6 /uL (4.18-5.48); Red Cell Distribution Width 17 % (10-15); White Blood Count 10.7 10^3/uL (3.5-10.8)
[2022-01-23 05:54] LABS: ABS Basophils 0.1 10^3/ul (0-0.2); ABS Eosinophils 0.1 10^3/ul (0-0.6); ABS Lymphocytes 1.8 10^3/ul (1.0-4.8); ABS Monocytes 0.8 10^3/ul (0-0.8); ABS Neutrophils 7.9 10^3/ul (1.5-7.7); Lymphocyte % 16.4 %
[2022-01-23 05:58] LABS: Calcium 8.4 mg/dL (8.6-10.3); Magnesium 2.3 mg/dL (1.9-2.7); Potassium 4.6 mmol/L (3.5-5.0); eGFR CKD-EPI 59.1 (>60)
[2022-01-23] MEDS: Venlafaxine XR 75 mg PO SCH (07:59)
[2022-01-23] MEDS: guaiFENesin 100 mg/5 ml LIQ unit dose cup PO SCH ×2 (07:59→21:41)
[2022-01-23] MEDS: Enoxaparin 40 MG/0.4 ML SYR SUBCUT SCH (07:59)
[2022-01-23] MEDS: Fluticasone NASAL SPRAY 50MCG 16 gm SPRAY BTL BOTH NARES SCH (08:01)
[2022-01-23] MEDS: Levalbuterol HFA INHALER MDI INH PRN (08:22)
[2022-01-23] MEDS: SPIRIVA Respimat (tiotropium) 2.5 mcg/inh Inhaler INH SCH (08:22)
[2022-01-23] MEDS: Mometasone/Formoter 200/5 MDI INH SCH ×2 (08:22→19:44)
[2022-01-24] MEDS: SPIRIVA Respimat (tiotropium) 2.5 mcg/inh Inhaler INH SCH (07:01)
[2022-01-24] MEDS: Mometasone/Formoter 200/5 MDI INH SCH (07:02)
[2022-01-24] MEDS: Levalbuterol HFA INHALER MDI INH PRN (07:02)
[2022-01-24] MEDS: Enoxaparin 40 MG/0.4 ML SYR SUBCUT SCH (08:06)
[2022-01-24] MEDS: guaiFENesin 100 mg/5 ml LIQ unit dose cup PO SCH (08:06)
[2022-01-24] MEDS: Venlafaxine XR 75 mg PO SCH (08:07)
[2022-01-24] MEDS: Fluticasone NASAL SPRAY 50MCG 16 gm SPRAY BTL BOTH NARES SCH (08:13)
[2022-01-24 12:26] VITALS: BP 141/75
== END 2022-01-24 14:10 | DRG 521 ==
LOC: ED 03:35 → SUATTDRO 06:30 → EDHOLD 06:30 → SSU 13:45 → ICU 01-12 11:23 → SSU 01-15 05:44
PROVIDERS: ADMIT Nurse Practitioner; ATTEND Student in an Organized Health Care Education/Training Program

== ENCOUNTER 2022-02-14 16:56 | Observation (INO) ==
[2022-02-14 18:56] LABS: ABS Basophils 0.1 10^3/ul (0-0.2); ABS Eosinophils 0.2 10^3/ul (0-0.6); ABS Lymphocytes 1.2 10^3/ul (1.0-4.8); ABS Monocytes 0.8 10^3/ul (0-0.8); ABS Neutrophils 6.5 10^3/ul (1.5-7.7); Eosinophil % 1.9 %; Hematocrit 32 % (42-52); Hemoglobin 10.4 g/dL (14.0-18.0); Lymphocyte % 13.3 %; Mean Corpuscular HGB Conc 33 g/dL (31-36); Mean Corpuscular Hemoglobin 30 pg (27-31); Mean Corpuscular Volume 91 fL (80-94); Mean Platelet Volume 9.4 fL (7.4-10.4); Nucleated Red Blood Cells % 0.1; Platelet Count 209 10^3/uL (150-450); Red Cell Distribution Width 16 % (10-15); White Blood Count 8.8 10^3/uL (3.5-10.8)
[2022-02-14 19:07] LABS: INR 1.39 (0.86-1.15)
[2022-02-14 19:23] LABS: ALT 12 U/L (7-52); Albumin/Globulin Ratio 0.9 (1-3); Alkaline Phosphatase 139 U/L (35-149); Blood Urea Nitrogen 27 mg/dL (6-24); CO2 Carbon Dioxide 23 mmol/L (22-32); Calcium 9.2 mg/dL (8.6-10.3); Chloride 106 mmol/L (101-111); Globulin 3.4 g/dL (2-4); Glucose 111 mg/dL (70-100); Sodium 136 mmol/L (135-145); Total Protein 6.4 g/dL (6.4-8.9); eGFR CKD-EPI 52.1 (>60)
[2022-02-14 19:27] LABS: Anion Gap 7 mmol/L (2-11)
[2022-02-14] MEDS ORDERED: Furosemide 40 mg/4 ml IV VIAL IV ONE (22:06)
[2022-02-14] MEDS: Enoxaparin 40 MG/0.4 ML SYR SUBCUT SCH (22:15)
[2022-02-14] MEDS ORDERED: Ipratropium HFA INHALER(NF) (ALTERNATIVE = NEBS) INH PRN (22:16)
[2022-02-14] MEDS ORDERED: Senna TAB 8.6 mg TAB PO PRN (22:16)
[2022-02-14] MEDS ORDERED: Levalbuterol HFA INHALER MDI INH PRN (22:16)
[2022-02-14] MEDS ORDERED: Magnesium Hydroxide LIQ 30 ML UDC PO PRN (22:16)
[2022-02-14] MEDS ORDERED: Dextran 70/Hypromellose Tears Eye Drops 15 ml BTL (for Artificials Tears) BOTH EYES PRN (22:16)
[2022-02-14] MEDS ORDERED: Albuterol 2.5mg/3 ml (0.083%) NEB.SOLN INH PRN (22:16)
[2022-02-14] MEDS ORDERED: Albuterol HFA INHALER 8 gm MDI INH PRN (22:16)
[2022-02-14] MEDS ORDERED: oxyCODONE/Acetamin 5/325 mg TAB PO PRN (22:26)
[2022-02-14 22:34] LABS: C Reactive Protein 153.04 mg/L (<8.01)
[2022-02-14 22:49] LABS: TSH Ultra Thyroid Stim Horm 0.43 mcIU/mL (0.34-5.60)
[2022-02-14 23:13] LABS: Urine Appearance Clear; Urine Bilirubin Negative (Negative); Urine Blood Negative (Negative); Urine Color Yellow; Urine Glucose Negative (Negative); Urine Ketones Negative (Negative); Urine Nitrite Negative (Negative); Urine Protein Negative (Negative); Urine Specific Gravity 1.012 (1.002-1.030); Urine Urobilinogen Negative (Negative)
[2022-02-14] MEDS ORDERED: Azithromycin 500 mg/250 ml NS 500 MG/250 ML BAG IVPB ONE ×2 (23:52→23:53)
[2022-02-15 02:06] LABS: Magnesium 1.6 mg/dL (1.9-2.7); Potassium Redraw 3.9 mmol/L (3.5-5.0)
[2022-02-15] MEDS ORDERED: Magnesium Sulf 4 GM/100 ML IV 4,000 MG/100 ML BAG IVPB ONE (04:00)
[2022-02-15 04:24] LABS: Phosphorus 4.5 mg/dL (2.5-5.0)
[2022-02-15 05:26] LABS: ABS Basophils 0.1 10^3/ul (0-0.2); ABS Eosinophils 0.2 10^3/ul (0-0.6); ABS Lymphocytes 1.1 10^3/ul (1.0-4.8); ABS Monocytes 0.9 10^3/ul (0-0.8); Eosinophil % 1.5 %; Hematocrit 32 % (42-52); Hemoglobin 10.2 g/dL (14.0-18.0); Lymphocyte % 10.7 %; Mean Corpuscular HGB Conc 32 g/dL (31-36); Mean Corpuscular Hemoglobin 28 pg (27-31); Mean Corpuscular Volume 89 fL (80-94); Mean Platelet Volume 9.3 fL (7.4-10.4); Platelet Count 206 10^3/uL (150-450); Red Blood Count 3.61 10^6 /uL (4.18-5.48); Red Cell Distribution Width 16 % (10-15); White Blood Count 10.3 10^3/uL (3.5-10.8)
[2022-02-15 05:41] LABS: Calcium 8.9 mg/dL (8.6-10.3); Magnesium 1.6 mg/dL (1.9-2.7); Potassium 3.8 mmol/L (3.5-5.0); eGFR CKD-EPI 51.7 (>60)
[2022-02-15] MEDS: IPRATROPIUM INH SCH ×4 (07:27→20:00)
[2022-02-15] MEDS: Mometasone/Formoter 200/5 MDI INH SCH ×3 (07:28→20:01)
[2022-02-15 08:30] LABS: Ferritin 124.2 ng/mL (24-336)
[2022-02-15] MEDS ORDERED: Aspirin EC 81 mg TAB.EC (enteric coated) PO SCH (09:00)
[2022-02-15] MEDS ORDERED: Furosemide 20 mg/2 ml IV VIAL IV SLOW PU ONE (09:17)
[2022-02-15] MEDS: Cholecalciferol (VIT D3) 1,000 unit TAB PO SCH (09:30)
[2022-02-15] MEDS: Venlafaxine XR 75 mg PO SCH (09:31)
[2022-02-15] MEDS: Fluticasone NASAL SPRAY 50MCG 16 gm SPRAY BTL BOTH NARES SCH (09:33)
[2022-02-15] MEDS: Enoxaparin 40 MG/0.4 ML SYR SUBCUT SCH (20:44)
[2022-02-16 06:20] LABS: Calcium 8.7 mg/dL (8.6-10.3); Potassium 3.6 mmol/L (3.5-5.0); eGFR CKD-EPI 60.1 (>60)
[2022-02-16] MEDS: IPRATROPIUM INH SCH ×4 (08:39→19:53)
[2022-02-16] MEDS: Mometasone/Formoter 200/5 MDI INH SCH ×2 (08:39→19:53)
[2022-02-16] MEDS: oxyCODONE/Acetamin 5/325 mg TAB PO PRN (08:57)
[2022-02-16] MEDS: Fluticasone NASAL SPRAY 50MCG 16 gm SPRAY BTL BOTH NARES SCH (08:58)
[2022-02-16] MEDS: Venlafaxine XR 75 mg PO SCH (08:58)
[2022-02-16] MEDS: Cholecalciferol (VIT D3) 1,000 unit TAB PO SCH (08:59)
[2022-02-16] MEDS ORDERED: Potassium Chlor 20 meq TAB.ER PO ONE (13:30)
[2022-02-16] MEDS: Enoxaparin 40 MG/0.4 ML SYR SUBCUT SCH (21:30)
[2022-02-17] MEDS: oxyCODONE/Acetamin 5/325 mg TAB PO PRN (02:02)
[2022-02-17] MEDS: IPRATROPIUM INH SCH ×4 (07:18→20:19)
[2022-02-17] MEDS: Mometasone/Formoter 200/5 MDI INH SCH ×2 (07:18→20:17)
[2022-02-17] MEDS ORDERED: Potassium Chlor 10 meq TAB PO ONE (07:40)
[2022-02-17] MEDS: Venlafaxine XR 75 mg PO SCH (09:13)
[2022-02-17] MEDS: Cholecalciferol (VIT D3) 1,000 unit TAB PO SCH (09:16)
[2022-02-17] MEDS: Fluticasone NASAL SPRAY 50MCG 16 gm SPRAY BTL BOTH NARES SCH (09:18)
[2022-02-17] MEDS: Enoxaparin 40 MG/0.4 ML SYR SUBCUT SCH (20:21)
[2022-02-18] MEDS ORDERED: Potassium Chlor 10 meq TAB PO ONE (07:22)
[2022-02-18] MEDS: Mometasone/Formoter 200/5 MDI INH SCH (08:00)
[2022-02-18] MEDS: IPRATROPIUM INH SCH ×3 (08:01→15:06)
[2022-02-18] MEDS: Cholecalciferol (VIT D3) 1,000 unit TAB PO SCH (09:07)
[2022-02-18] MEDS: Venlafaxine XR 75 mg PO SCH (09:07)
[2022-02-18] MEDS: Fluticasone NASAL SPRAY 50MCG 16 gm SPRAY BTL BOTH NARES SCH (09:14)
[2022-02-18] MEDS: oxyCODONE/Acetamin 5/325 mg TAB PO PRN ×2 (09:14→15:23)
[2022-02-18 15:07] VITALS: BP 110/64
== END 2022-02-18 16:24 | disposition short-term general hospital (02) ==
LOC: ED 16:56 → SUATTDRO 21:59 → EDHOLD 21:59 → INTOOBSV 21:59 → EDHOLD 23:51 → MEDTELE 02-15 00:54
PROVIDERS: ADMIT Internal Medicine; ATTEND Hospitalist

== ENCOUNTER 2022-05-24 12:35 | Inpatient (IN) ==
[2022-05-24] MEDS ORDERED: Albuterol 2.5mg/3 ml (0.083%) NEB.SOLN INH ONE (13:03)
[2022-05-24 13:27] LABS: ABS Basophils 0.1 10^3/ul (0-0.2); ABS Lymphocytes 0.3 10^3/ul (1.0-4.8); ABS Monocytes 0.6 10^3/ul (0-0.8); ABS Neutrophils 13.1 10^3/ul (1.5-7.7); Eosinophil % 0.2 %; Hematocrit 40 % (42-52); Hemoglobin 12.6 g/dL (14.0-18.0); Lymphocyte % 2.1 %; Mean Corpuscular HGB Conc 32 g/dL (31-36); Mean Corpuscular Hemoglobin 27 pg (27-31); Mean Corpuscular Volume 86 fL (80-94); Mean Platelet Volume 8.1 fL (7.4-10.4); Platelet Count 256 10^3/uL (150-450); Red Blood Count 4.65 10^6 /uL (4.18-5.48); Red Cell Distribution Width 19 % (10-15); White Blood Count 14.2 10^3/uL (3.5-10.8)
[2022-05-24 13:34] LABS: Venous Bicarbonate HCO3 16.8 mmol/L (24-28)
[2022-05-24 13:52] LABS: Albumin 3.5 g/dL (3.2-5.2); Calcium 9.3 mg/dL (8.6-10.3); Globulin 3.4 g/dL (2-4); Potassium 3.8 mmol/L (3.5-5.0); Total Bilirubin 0.3 mg/dL (0.2-1.0); Total Protein 6.9 g/dL (6.4-8.9); eGFR CKD-EPI 45.6 (>60)
[2022-05-24 14:45] LABS: High Sensitivity Troponin 1 Hr 19 pg/mL (<20)
[2022-05-24] MEDS ORDERED: Iodixanol (CONTRAST) 320 MG/ML 100 ML SDV IV ONE (15:30)
[2022-05-24] MEDS ORDERED: oxyCODONE/Acetamin 5/325 mg TAB PO ONE (20:19)
[2022-05-24] MEDS ORDERED: Metoprolol Tartrate 5 mg VIAL 5 ml VIAL (1 mg/ml) IV ONE (21:09)
[2022-05-24] MEDS: Metoprolol Tartrate 5 mg VIAL 5 ml VIAL (1 mg/ml) IV PRN ×2 (23:30→23:35)
[2022-05-25] MEDS ORDERED: Ondansetron 4 mg VIAL 2 MG/ML 2 ml VIAL IV PRN (00:25)
[2022-05-25] MEDS ORDERED: Azithromycin 500 mg/250 ml NS 500 MG/250 ML BAG IVPB ONE (00:30)
[2022-05-25] MEDS ORDERED: NS 0.9% 1000 ml BAG 1,000 ML IV SCH (00:30)
[2022-05-25] MEDS ORDERED: IPRATROPIUM INH PRN (00:33)
[2022-05-25] MEDS ORDERED: oxyCODONE/Acetamin 5/325 mg TAB PO PRN (00:33)
[2022-05-25] MEDS: cefTRIAXone 1 gm/50 mL D5W 1 GM/50 ML BAG IV SCH (01:31)
[2022-05-25 03:48] LABS: Urine Appearance Clear; Urine Bilirubin Negative (Negative); Urine Blood Negative (Negative); Urine Color Colorless; Urine Glucose Negative (Negative); Urine Ketones Negative (Negative); Urine Nitrite Negative (Negative); Urine Protein Negative (Negative); Urine Specific Gravity 1.008 (1.002-1.030); Urine Urobilinogen Negative (Negative)
[2022-05-25 04:24] LABS: Urine Benzodiazepine Screen None Detected (None Detect); Urine Cannabinoids Screen None Detected (None Detect); Urine Opiates Screen None Detected (None Detect)
[2022-05-25] MEDS ORDERED: Heparin 5000 UNITS/ML 1 mL VIAL SUBCUT SCH (06:00)
[2022-05-25 07:04] LABS: ABS Basophils 0.1 10^3/ul (0-0.2); ABS Eosinophils 0.1 10^3/ul (0-0.6); ABS Lymphocytes 1.3 10^3/ul (1.0-4.8); ABS Monocytes 0.8 10^3/ul (0-0.8); ABS Neutrophils 9.2 10^3/ul (1.5-7.7); Hematocrit 29 % (42-52); Hemoglobin 9.5 g/dL (14.0-18.0); Lymphocyte % 11.4 %; Mean Corpuscular HGB Conc 33 g/dL (31-36); Mean Corpuscular Hemoglobin 28 pg (27-31); Mean Corpuscular Volume 86 fL (80-94); Mean Platelet Volume 8.2 fL (7.4-10.4); Platelet Count 191 10^3/uL (150-450); Red Cell Distribution Width 19 % (10-15); White Blood Count 11.6 10^3/uL (3.5-10.8)
[2022-05-25 07:47] LABS: Calcium 8.5 mg/dL (8.6-10.3); Potassium 3.9 mmol/L (3.5-5.0); eGFR CKD-EPI 44.7 (>60)
[2022-05-25] MEDS: Venlafaxine XR 75 mg PO SCH (08:08)
[2022-05-25] MEDS: Heparin 5000 UNITS/ML 1 mL VIAL SUBCUT SCH ×3 (08:10→22:02)
[2022-05-25] MEDS ORDERED: CMCS: Dutasteride 0.5 mg CAP (NF) PO SCH (09:00)
[2022-05-25] MEDS: Fluticasone NASAL SPRAY 50MCG 16 gm SPRAY BTL BOTH NARES SCH (11:04)
[2022-05-25] MEDS: Mometasone/Formoter 200/5 MDI INH SCH ×2 (11:04→22:06)
[2022-05-25] MEDS: Saline NASAL SPRAY 0.65% BTL BOTH NARES SCH ×2 (11:05→22:06)
[2022-05-26] MEDS: cefTRIAXone 1 gm/50 mL D5W 1 GM/50 ML BAG IV SCH (01:25)
[2022-05-26] MEDS: Heparin 5000 UNITS/ML 1 mL VIAL SUBCUT SCH ×3 (05:08→20:45)
[2022-05-26 07:22] LABS: Calcium 8.8 mg/dL (8.6-10.3); Potassium 4.1 mmol/L (3.5-5.0); eGFR CKD-EPI 54.4 (>60)
[2022-05-26 07:55] LABS: ABS Monocytes 0.7 10^3/ul (0-0.8); ABS Neutrophils 6.2 10^3/ul (1.5-7.7); Eosinophil % 0.2 %; Hematocrit 30 % (42-52); Hemoglobin 9.5 g/dL (14.0-18.0); Lymphocyte % 12.2 %; Mean Corpuscular HGB Conc 32 g/dL (31-36); Mean Corpuscular Hemoglobin 27 pg (27-31); Mean Corpuscular Volume 86 fL (80-94); Mean Platelet Volume 8.6 fL (7.4-10.4); Platelet Count 180 10^3/uL (150-450); Red Blood Count 3.45 10^6 /uL (4.18-5.48); Red Cell Distribution Width 19 % (10-15); White Blood Count 7.8 10^3/uL (3.5-10.8)
[2022-05-26] MEDS: Mometasone/Formoter 200/5 MDI INH SCH ×2 (08:17→20:00)
[2022-05-26] MEDS: Venlafaxine XR 75 mg PO SCH (08:19)
[2022-05-26] MEDS: Fluticasone NASAL SPRAY 50MCG 16 gm SPRAY BTL BOTH NARES SCH (08:20)
[2022-05-26] MEDS: Saline NASAL SPRAY 0.65% BTL BOTH NARES SCH ×2 (08:21→22:07)
[2022-05-27] MEDS: cefTRIAXone 1 gm/50 mL D5W 1 GM/50 ML BAG IV SCH (00:28)
[2022-05-27] MEDS: Heparin 5000 UNITS/ML 1 mL VIAL SUBCUT SCH ×4 (05:31→23:06)
[2022-05-27 07:23] LABS: ABS Lymphocytes 1.4 10^3/ul (1.0-4.8); ABS Monocytes 0.8 10^3/ul (0-0.8); Eosinophil % 0.1 %; Hematocrit 30 % (42-52); Hemoglobin 9.6 g/dL (14.0-18.0); Lymphocyte % 13.6 %; Mean Corpuscular HGB Conc 32 g/dL (31-36); Mean Corpuscular Hemoglobin 27 pg (27-31); Mean Corpuscular Volume 86 fL (80-94); Mean Platelet Volume 8.5 fL (7.4-10.4); Platelet Count 218 10^3/uL (150-450); Red Blood Count 3.52 10^6 /uL (4.18-5.48); Red Cell Distribution Width 19 % (10-15); White Blood Count 10.3 10^3/uL (3.5-10.8)
[2022-05-27] MEDS: Mometasone/Formoter 200/5 MDI INH SCH ×2 (07:27→18:48)
[2022-05-27 07:42] LABS: Albumin 2.9 g/dL (3.2-5.2); Calcium 8.8 mg/dL (8.6-10.3); Globulin 2.9 g/dL (2-4); Potassium 4.2 mmol/L (3.5-5.0); Total Bilirubin 0.1 mg/dL (0.2-1.0); Total Protein 5.8 g/dL (6.4-8.9); eGFR CKD-EPI 40.4 (>60)
[2022-05-27] MEDS ORDERED: Lactated Ringers 500 ml BAG 500 ML IV ONE (07:56)
[2022-05-27] MEDS: Venlafaxine XR 75 mg PO SCH (09:23)
[2022-05-27] MEDS: Fluticasone NASAL SPRAY 50MCG 16 gm SPRAY BTL BOTH NARES SCH (09:23)
[2022-05-27] MEDS: Saline NASAL SPRAY 0.65% BTL BOTH NARES SCH ×2 (09:27→23:01)
[2022-05-28] MEDS: cefTRIAXone 1 gm/50 mL D5W 1 GM/50 ML BAG IV SCH (03:01)
[2022-05-28] MEDS: Heparin 5000 UNITS/ML 1 mL VIAL SUBCUT SCH (05:29)
[2022-05-28] MEDS: Mometasone/Formoter 200/5 MDI INH SCH (08:19)
[2022-05-28 08:59] LABS: ABS Basophils 0.1 10^3/ul (0-0.2); ABS Lymphocytes 1.7 10^3/ul (1.0-4.8); ABS Monocytes 0.5 10^3/ul (0-0.8); ABS Neutrophils 6.8 10^3/ul (1.5-7.7); Eosinophil % 0.2 %; Hematocrit 33 % (42-52); Hemoglobin 10.4 g/dL (14.0-18.0); Lymphocyte % 18.3 %; Mean Corpuscular HGB Conc 32 g/dL (31-36); Mean Corpuscular Hemoglobin 27 pg (27-31); Mean Corpuscular Volume 85 fL (80-94); Platelet Count 222 10^3/uL (150-450); Red Blood Count 3.89 10^6 /uL (4.18-5.48); Red Cell Distribution Width 19 % (10-15); White Blood Count 9.1 10^3/uL (3.5-10.8)
[2022-05-28 09:36] LABS: Potassium 4.2 mmol/L (3.5-5.0); eGFR CKD-EPI 40.1 (>60)
[2022-05-28] MEDS: Saline NASAL SPRAY 0.65% BTL BOTH NARES SCH (11:47)
[2022-05-28] MEDS: Fluticasone NASAL SPRAY 50MCG 16 gm SPRAY BTL BOTH NARES SCH (11:47)
[2022-05-28] MEDS: Venlafaxine XR 75 mg PO SCH (11:48)
[2022-05-28 19:37] VITALS: BP 153/85
== END 2022-05-28 17:10 | disposition home health service (06) | DRG 189 ==
LOC: EDHOLD 12:35 → ED 12:35 → SUATTDRO 05-25 00:26 → MEDTELE 05-25 18:24
PROVIDERS: ADMIT Internal Medicine; ATTEND Student in an Organized Health Care Education/Training Program